=== PATIENT | male | born 1980 | race Hispanic/Latino ===

== ENCOUNTER 2017-01-20 21:56 | Emergency (ER) | payer OTHER ==
[~2017-01-20] VITALS: Ht 177.8 cm; Wt 137.9 kg
[~2017-01-20 21:56] MED LIST: ALBUTEROL0.09 MG/A1 INH; AMOXIL 875 MG875 MG PO; FLEXERIL10 MG PO; HYDROCODONE/ACE1 TA1 PO; PREDNISONE 20MG20 MG PO; PROVENTIL0.09 MG/A1 INH; TESSALON PERLE100 MG PO; TYLENOL XSTR500 MG PO; [UNRECOGNIZED DRUG - OTHER] NASB
[2017-01-20 22:19] VITALS: BP 138/94
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
[2017-01-20] MEDS ORDERED: NORCO 5-325 TA1 EACH PO (23:17)
[2017-01-20] MEDS ORDERED: CYCLOBENZAPRINE5 M2 PO (23:17)
== END 2017-01-20 23:45 ==
LOC: ERH 21:56
DX: S16.1XXA Strain of muscle, fascia and tendon at neck level, initial encounter (principal); S29.012A Strain of muscle and tendon of back wall of thorax, initial encounter; V49.40XA Driver injured in collision with unspecified motor vehicles in traffic accident, initial encounter; Y92.9 Unspecified place or not applicable